=== PATIENT | male | born 1990 | race American Indian/Alaskan Native ===

== ENCOUNTER 2017-05-01 17:06 | Emergency (ER) | payer MEDICAID, OTHER ==
[2017-05-01 17:41] VITALS: RESP 18; TEMP 98.2
[2017-05-01] MEDS ORDERED: cefTRIAXone (Rocephin) 250 mg Inj IM STA (18:19)
--- NOTE | 2017-05-01 18:34 | ED PDOC ---
Arrival/HPI - General Chief Complaint: Medical Clearance Time Seen by Provider: 05/01/17 18:18 Historian: Patient - History of Present Illness Narrative History of Present Illness (Text): 05/01/17 18:31 26-year-old male presents today with intermittent lower abdominal pain slight dysuria and burning. Patient states he had unprotected sex over the weekend and has started to develop a heaviness feeling in the lower abdomen and occasional dysuria. Patient denies penile discharge. Denies fevers or chills. No nausea vomiting diarrhea or constipation. No chest pain or shortness of breath. Patient denies any lesions. No other complaints Time/Duration: Other (1 day) Past Medical History - Provider Review Nursing Documentation Reviewed: Yes - Travel History Have you recently traveled outside [place] w/in the past 3 mons?: No - Infectious Disease Hx of Infectious Diseases: None - Tetanus Immunization Tetanus Immunization: Unknown - Past Medical History Past Medical History: Non-Contributing - Cardiac Hx Cardiac Disorders: No - Pulmonary Hx Respiratory Disorders: No - Neurological Hx Neurological Disorder: No - HEENT Hx HEENT Disorder: No - Renal Hx Renal Disorder: No - Endocrine/Metabolic Hx Endocrine Disorders: No - Hematological/Oncological Hx Blood Disorders: No - Integumentary Hx Dermatological Disorder: No - Musculoskeletal/Rheumatological Hx Musculoskeletal Disorders: No - Gastrointestinal Hx Gastrointestinal Disorders: No - Genitourinary/Gynecological Hx Genitourinary Disorders: No - Psychiatric Hx Psychophysiologic Disorder: No Hx Substance Use: No Family/Social History - Physician Review Nursing Documentation Reviewed: Yes Family/Social History: Unknown Family HX Smoking Status: Current Some Days Smoker Hx Alcohol Use: No Hx Substance Use: No Allergies/Home Meds Allergies/Adverse Reactions: Allergies No Known Allergies Allergy (Verified 03/28/16 17:50) Home Medications: Home Meds Medication Instructions Recorded Confirmed No Known Home Med 05/01/17 05/01/17 Review of Systems - Review of Systems Constitutional: absent: Fatigue, Fevers Respiratory: absent: SOB, Cough Cardiovascular: absent: Chest Pain, Palpitations Gastrointestinal: Abdominal Pain. absent: Constipation, Diarrhea, Nausea, Vomiting Genitourinary Male: Dysuria. absent: Frequency, Hematuria Musculoskeletal: absent: Arthralgias, Back Pain, Neck Pain Skin: absent: Rash, Pruritis Neurological: absent: Headache, Dizziness Psychiatric: absent: Anxiety, Depression Physical Exam Vital Signs Reviewed: Yes Vital Signs Temp Pulse Resp BP Pulse Ox 05/01/17 17:35 98.2 F 79 18 127/80 100 Temperature: Afebrile Blood Pressure: Normal Pulse: Regular Respiratory Rate: Normal Appearance: Positive for: Well-Appearing, Non-Toxic, Comfortable Pain Distress: None Mental Status: Positive for: Alert and Oriented X 3 - Systems Exam Head: Present: Atraumatic Mouth: Present: Moist Mucous Membranes Neck: Present: Normal Range of Motion Respiratory/Chest: Present: Clear to Auscultation, Good Air Exchange. No: Respiratory Distress, Accessory Muscle Use Cardiovascular: Present: Regular Rate and Rhythm, Normal S1, S2. No: Murmurs Abdomen: Present: Normal Bowel Sounds. No: Tenderness, Distention, Peritoneal Signs, Rebound, Guarding Genitourinary Male: Present: Normal External Genitalia, Circumcised Penis, Other (chaparoned by morgan locke EMT.). No: Penile Discharge, Testicle Tenderness , Penile Swelling, Masses, Erythema, Hernias, Testicle Swelling Back: Present: Normal Inspection Upper Extremity: Present: Normal ROM Lower Extremity: Present: Normal ROM Neurological: Present: GCS=15 Skin: Present: Warm, Dry, Normal Color. No: Rashes Psychiatric: Present: Alert, Oriented x 3 Medical Decision Making ED Course and Treatment: 05/01/17 18:33 Patient is nontoxic well-appearing in no distress with stable vital signs UA: wnl Ceftriaxone 250 mg IM Zithromax 1 g p.o. given Gonorrhea and Chlamydia cultures are pending. Advised patient to refrain from sex for 10 days followup with the primary care physician within the next 2 days or return if symptoms worsen persist or if new symptoms develop. Patient verbalizes understanding of discharge instructions and need for immediate followup. all aspects of this case were discussed the attending of record. Impression: dysuria, std exposure Follow up primary care physician within the next 2 days Return if symptoms worsen persist or if new symptoms develop. 05/01/17 19:27 - Lab Interpretations Lab Results: Lab Results 05/01/17 18:35: Urine Color Yellow, Urine Appearance Clear, Urine pH 6.5, Ur Specific Squire <= 1.005, Urine Protein Negative, Urine Glucose (UA) Negative, Urine Ketones Negative, Urine Blood Negative, Urine Nitrate Negative, Urine Bilirubin Negative, Urine Urobilinogen 0.2, Ur Leukocyte Esterase Negative - Medication Orders Current Medication Orders: Discontinued Medications Azithromycin (Zithromax) 1,000 mg PO STAT STA PRN Reason: Protocol Stop: 05/01/17 18:20 Last Admin: 05/01/17 18:19 Dose: 1,000 mg Ceftriaxone Sodium (Rocephin) 250 mg IM STAT STA PRN Reason: Protocol Stop: 05/01/17 18:20 Last Admin: 05/01/17 18:19 Dose: 250 mg IM Administration Charges Document 05/01/17 18:19 AD (Rec: 05/01/17 19:[address] [facility] [id number]) Charges for Administration # of IM Administrations 1 Disposition/Present on Arrival - Present on Arrival Any Indicators Present on Arrival: No History of DVT/PE: No History of Uncontrolled Diabetes: No Urinary Catheter: No History of Decub. Ulcer: No History Surgical Site Infection Following: None - Disposition Have Diagnosis and Disposition been Completed?: Yes Diagnosis: Dysuria, Possible exposure to STD Disposition: HOME/ ROUTINE Disposition Time: 19:28 Patient Plan: Discharge Condition: GOOD Discharge Instructions (ExitCare): Safe Sex (ED), Condom Use (ED), Sexually Transmitted Diseases (ED) Additional Instructions: Follow up primary care physician within the next 2 days Return if symptoms worsen persist or if new symptoms develop. Referrals: Jaqui Silva MD [Staff Provider] - Follow up with primary Forms: [employer] (Mongolian)
[2017-05-01] MEDS ORDERED: Lidocaine 1% Inj (20ml) ONE (18:54)
[2017-05-01 19:16] LABS: PH,URINE 6.5 (4.7-8.0); URINE BILIRUBIN NEGATIVE (NEGATIVE); URINE BLOOD NEGATIVE (NEGATIVE); URINE GLUCOSE (UA) NEGATIVE (NEGATIVE); URINE KETONE NEGATIVE (NEGATIVE); URINE LEUKOCYTE ESTERASE NEGATIVE Leu/uL (NEGATIVE); URINE PROTEIN NEGATIVE mg/dL (<30 mg/dL); URINE UROBILINOGEN 0.2 E.U./dL (<1 E.U./dL)
[2017-05-01 19:19] LABS: URINE APPEARANCE CLEAR (CLEAR); URINE COLOR YELLOW (YELLOW)
[2017-05-01 19:32] VITALS: BP 128/80; PULSE 70; O2SAT 98
== END 2017-05-01 19:33 | disposition home or self-care (01) ==
LOC: ED 17:06
DX: R30.0 Dysuria (principal)
CPT/HCPCS: 81003; 87491; 87591; 96372; 99282; J0696

== ENCOUNTER 2018-04-29 11:46 | Emergency (ER) | payer MEDICAID, OTHER ==
[2018-04-29 11:56] VITALS: BMI 21.6
--- NOTE | 2018-04-29 12:28 | ED PDOC ---
Arrival/HPI - General Chief Complaint: Upper Extremity Problem/Injury Time Seen by Provider: 04/29/18 12:18 Historian: Patient - History of Present Illness Narrative History of Present Illness (Text): 04/29/18 12:24 27yr old male presents today with a 2 week history of right shoulder pain. pt states 2 weeks ago while leaving work he noticed pain to the right shoulder. pt states a few days later the pain spread to the right anterior chest. pt pain is worse with resting. pt denies numbness, weakness, tingling in the extremity. pt also with cough x 2 weeks. pt denies shortness of breath. no n/v/d/c. no abdominal pain. no medications have been taken for pain at home. Time/Duration: > week (2 weeks) Past Medical History - Provider Review Nursing Documentation Reviewed: Yes - Travel History Have you recently traveled outside [place] w/in the past 3 mons?: No - Infectious Disease Hx of Infectious Diseases: None - Tetanus Immunization Tetanus Immunization: Unknown - Past Medical History Past Medical History: Non-Contributing - Cardiac Hx Cardiac Disorders: No - Pulmonary Hx Respiratory Disorders: No - Neurological Hx Neurological Disorder: No - HEENT Hx HEENT Disorder: No - Renal Hx Renal Disorder: No - Endocrine/Metabolic Hx Endocrine Disorders: No - Hematological/Oncological Hx Blood Disorders: No - Integumentary Hx Dermatological Disorder: No - Musculoskeletal/Rheumatological Hx Musculoskeletal Disorders: No - Gastrointestinal Hx Gastrointestinal Disorders: No - Genitourinary/Gynecological Hx Genitourinary Disorders: No - Psychiatric Hx Psychophysiologic Disorder: No Hx Substance Use: No Family/Social History - Physician Review Nursing Documentation Reviewed: Yes Family/Social History: Unknown Family HX Smoking Status: Current Some Days Smoker Hx Alcohol Use: Yes Frequency of alcohol use: Socially Hx Substance Use: No Allergies/Home Meds Allergies/Adverse Reactions: Allergies No Known Allergies Allergy (Verified 03/28/16 17:50) Review of Systems - Review of Systems Constitutional: absent: Fatigue, Fevers Respiratory: Cough. absent: SOB Cardiovascular: Chest Pain (right shoulder pain radiating into right chest wall. ). absent: Palpitations Gastrointestinal: absent: Abdominal Pain, Nausea, Vomiting Genitourinary Male: absent: Dysuria Musculoskeletal: Arthralgias (right shoulder pain) Skin: absent: Rash, Pruritis Neurological: absent: Headache, Dizziness Psychiatric: absent: Anxiety, Depression Physical Exam Vital Signs Reviewed: Yes Vital Signs Temp Pulse Resp BP Pulse Ox 04/29/18 11:56 98.9 F 97 H 18 136/79 98 Temperature: Afebrile Blood Pressure: Normal Pulse: Regular Respiratory Rate: Normal Appearance: Positive for: Well-Appearing, Non-Toxic, Comfortable Pain Distress: None Mental Status: Positive for: Alert and Oriented X 3 - Systems Exam Head: Present: Atraumatic Mouth: Present: Moist Mucous Membranes Neck: Present: Normal Range of Motion, Trachea Midline. No: MIDLINE TENDERNESS, Paraspinal Tenderness Respiratory/Chest: Present: Clear to Auscultation, Good Air Exchange, Tender to Palpation (+ minimal ttp over right anterior chest wall; no edema, no erythema; no crepitus, no step offs. no ecchymosis; ). No: Respiratory Distress, Accessory Muscle Use Cardiovascular: Present: Regular Rate and Rhythm, Normal S1, S2. No: Murmurs Abdomen: No: Tenderness, Distention, Rebound, Guarding Back: Present: Normal Inspection. No: Midline Tenderness, Paraspinal Tenderness Upper Extremity: Present: Normal ROM, NORMAL PULSES, Tenderness (right shoulder; + ttp over anterior aspect of right shoulder; full rom of shoulder; no edema, no erythema; no ecchymosis; full ROM of shoulder; sensation and distal pulses intact. cap refill <2. ), Neurovascularly Intact, Capillary Refill < 2s. No: Swelling, Erythema, Deformity Neurological: Present: GCS=15, Speech Normal Skin: Present: Warm, Dry, Normal Color. No: Rashes Psychiatric: Present: Alert, Oriented x 3 Medical Decision Making ED Course and Treatment: 04/29/18 12:29 27yr old male with right shoulder and right sided chest pain x 2 weeks. ekg: Normal sinus rhythm at 95b/m normal axis normal intervals no ST elevations cxr; LUNGS: Suspect right middle lobe infiltrate. This is difficult to appreciate in the lateral projection. There is no silhouetting of the right heart border. Nevertheless, the location of this opacity in the frontal view suggests at it is right middle lobe in location. No other infiltrate PLEURA: Elsewhere. CARDIOVASCULAR: Normal. OSSEOUS STRUCTURES: No significant abnormalities. VISUALIZED UPPER ABDOMEN: Normal. OTHER FINDINGS: None. IMPRESSION: Suspected right middle lobe infiltrate. Follow up to clearing advised. xray right shoulder; no fracture toradol given for pain. cbc; wnl cmp; wnl trop; wnl dimer; elevated CTA PE protocol ordered; FINDINGS: PULMONARY ARTERIES: Unremarkable. No pulmonary embolism. AORTA: No acute findings. No thoracic aortic aneurysm. LUNGS: Dense consolidation in the medial segment of the right middle lobe, with air br onchograms. No other infiltrate elsewhere. No pulmonary mass. PLEURAL SPACES: Unremarkable. No effusion or pneumothorax. HEART: Unremarkable. No cardiomegaly. No significant pericardial effusion. LYMPH NODES: No lymphadenopathy. BONES, CHEST WALL: Unremarkable. No fracture or destructive lesion OTHER FINDINGS: Unremarkable. IMPRESSION: Right middle lobe consolidation. Likely pneumonia. No evidence of pulmonary embolism. pt reassessment; patient is nontoxic well-appearing no distress his stable vital signs. I discussed the results and after the patient advised the patient of pneumonia. Zithromax given by mouth. Patient was advised to take Motrin every 6 hours as needed for pain. Patient was advised follow-up with primary care physician within the next 2 days. Patient was advised take antibiotics as prescribed and return immediately if symptoms worsen persist or if new concerning symptoms develop Patient verbalizes understanding of discharge instructions and need for immed iate followup. all aspects of this case were discussed the attending of record. Impression: Pneumonia, shoulder pain Motrin every 6 hours as needed for pain/fever reduction Zithromax once daily 4 days Increase fluids Follow with a primary care physician within the next 2 days Return immediately if symptoms worsen persist or if new concerning symptoms develop Reassessment Condition: Re-examined, Improved - RAD Interpretation Radiology Orders: 04/29/18 12:18 CHEST TWO VIEWS (PA/LAT) [RAD] Stat SHOULDER RIGHT [RAD] Stat Disposition/Present on Arrival - Present on Arrival Any Indicators Present on Arrival: No History of DVT/PE: No History of Uncontrolled Diabetes: No Urinary Catheter: No History of Decub. Ulcer: No History Surgical Site Infection Following: None - Disposition Have Diagnosis and Disposition been Completed?: Yes Diagnosis: Pneumonia, Shoulder pain Disposition: HOME/ ROUTINE Disposition Time: 13:30 Patient Plan: Discharge Patient Problems: Current Active Problems Problem Status Onset Pneumonia Acute Shoulder pain Acute Condition: GOOD Discharge Instructions (ExitCare): Community-Acquired Pneumonia in Adults, Shoulder Pain (DC) Additional Instructions: Motrin every 6 hours as needed for pain/fever reduction Zithromax once daily 4 days Increase fluids Follow with a primary care physician within the next 2 days Return immediately if symptoms worsen persist or if new concerning symptoms develop Prescriptions: Azithromycin [Zithromax] 250 mg PO DAILY #4 tab Ibuprofen [Motrin] 600 mg PO Q6H PRN #20 tab PRN Reason: pain/fever reduction Referrals: Анна Hurd MD [Medical Doctor] - Follow up with primary [facility] [Outside] - Follow up with primary Forms: [employer] (Uzbek), WORK NOTE
[2018-04-29 13:28] LABS: ALB/GLOB RATIO 1.1 (1.1-1.8); ALBUMIN 4.1 g/dL (3.0-4.8); ALT/SGPT 25 U/L (7-56); AST/SGOT 29 U/L (17-59); BLOOD UREA NITROGEN 10 mg/dL (7-21); CALCIUM 9.2 mg/dL (8.4-10.5); GFR NON-AFRICAN AMERICAN > 60
--- NOTE | 2018-04-29 13:28 | RAD ---
Date of service: 04/29/2018 HISTORY: shoulder pain/ cough x 2 weeks COMPARISON: No prior. TECHNIQUE: Chest PA and lateral FINDINGS: LUNGS: Suspect right middle lobe infiltrate. This is difficult to appreciate in the lateral projection. There is no silhouetting of the right heart border. Nevertheless, the location of this opacity in the frontal view suggests at it is right middle lobe in location. No other infiltrate PLEURA: Elsewhere. CARDIOVASCULAR: Normal. OSSEOUS STRUCTURES: No significant abnormalities. VISUALIZED UPPER ABDOMEN: Normal. OTHER FINDINGS: None. IMPRESSION: Suspected right middle lobe infiltrate. Follow up to clearing advised.
--- NOTE | 2018-04-29 13:30 | RAD ---
Date of service: 04/29/2018 PROCEDURE: Radiographs of the Right Shoulder HISTORY: right shoulder pain x 2 weeks COMPARISON: No prior. FINDINGS: BONES: Normal. No fracture. JOINTS: Normal. Glenohumeral and acromioclavicular joints preserved. No osteoarthritis. SOFT TISSUES: Normal. OTHER FINDINGS: None. IMPRESSION: Normal radiographs of the right shoulder.
[2018-04-29 13:35] LABS: BASO # 0.01 K/mm3 (0.0-2.0); BASO % 0.1 % (0.0-3.0); EOS % 0.3 % (1.5-5.0); GRAN # 6.7 (1.4-6.5); GRAN % 75.1 % (50.0-68.0); HEMOGLOBIN 15.3 g/dL (14.0-18.0); LYMPH # 1.5 (1.2-3.4); LYMPH % 17.2 % (22.0-35.0); MEAN CELL VOLUME 88.2 fl (80.0-105.0); MEAN CORPUSCULAR HEMOGLOBIN 30.1 pg (25.0-35.0); MEAN CORPUSCULAR HGB CONC 34.1 g/dl (31.0-37.0); MEAN PLATELET VOLUME 9.8 fl (7.0-11.0); MONO # 0.7 (0.1-0.6); MONO % 7.3 % (1.0-6.0); RBC 5.09 10^6/uL (3.5-6.1); RED CELL DISTRIBUTION WIDTH 12.6 % (11.5-14.5); WHITE BLOOD COUNT 8.9 10^3/ul (4.5-11.0)
[2018-04-29 13:51] VITALS: RESP 17; TEMP 98.4
[2018-04-29 14:02] LABS: INR 1.08; PARTIAL THROMBOPLASTIN TIME 30.3 Seconds (25.1-36.5); PROTHROMBIN TIME 12.4 SECONDS (9.4-12.5)
[2018-04-29] MEDS ORDERED: Iodixanol 320 MG/ML 100 ML BOTTLE IV ONE (14:19)
[2018-04-29 14:27] LABS: TROPONIN I < 0.01 ng/mL
--- NOTE | 2018-04-29 15:03 | CT ---
Date of service: 04/29/2018 PROCEDURE: CT Chest with contrast (Pulmonary Angiogram) HISTORY: right sided CP/cough COMPARISON: None available. TECHNIQUE: Axial computed tomography images were obtained of the chest in the pulmonary arterial phase of enhancement. Coronal and sagittal reformatted images were created and reviewed. Intravenous contrast dose: 100 mL Visipaque 320 Radiation dose: Total exam DLP = 193.81 mGy-cm. This CT exam was performed using one or more of the following dose reduction techniques: Automated exposure control, adjustment of the mA and/or kV according to patient size, and/or use of iterative reconstruction technique. FINDINGS: PULMONARY ARTERIES: Unremarkable. No pulmonary embolism. AORTA: No acute findings. No thoracic aortic aneurysm. LUNGS: Dense consolidation in the medial segment of the right middle lobe, with air bronchograms. No other infiltrate elsewhere. No pulmonary mass. PLEURAL SPACES: Unremarkable. No effusion or pneumothorax. HEART: Unremarkable. No cardiomegaly. No significant pericardial effusion. LYMPH NODES: No lymphadenopathy. BONES, CHEST WALL: Unremarkable. No fracture or destructive lesion OTHER FINDINGS: Unremarkable. IMPRESSION: Right middle lobe consolidation. Likely pneumonia. No evidence of pulmonary embolism.
--- NOTE | 2018-04-29 15:13 | CARD ---
APPROVED REPORT Date of service: 04/29/2018 EKG Measurement Heart [id number] <Conclusion> Normal sinus rhythm Right atrial enlargement RSR' or QR pattern in V1 suggests right ventricular conduction delay Borderline ECG
[2018-04-29 15:36] VITALS: BP 118/65; PULSE 81; O2SAT 100
== END 2018-04-29 15:44 | disposition home or self-care (01) ==
LOC: ED 11:46
DX: M25.511 Pain in right shoulder (principal); J18.9 Pneumonia, unspecified organism
CPT/HCPCS: 71046; 71275; 73030; 80053; 82550; 83615; 84484; 85025; 85378; 85610; 85730; 93005; 96372; 99284; J1885; Q9967